=== PATIENT | female | born 1990 | race Caucasian/White ===

== ENCOUNTER 2021-09-22 20:14 | Emergency (ER) | payer OTHER ==
[2021-09-22 20:20] VITALS: BP 126/77
[2021-09-22] MEDS ORDERED: predniSONE 20 MG TABLET PO STA (20:34)
[2021-09-22] MEDS ORDERED: HYDROcod/ACET 5/325 Prepack 4 PO STA (20:34)
--- NOTE | 2021-09-22 20:36 | ED Physician Documentation ---
History of Present Illness - Stated complaint Stated Complaint: NECK/BACK PX - Chief complaint Chief Complaint: Ext Problem - History obtained from History obtained from: Patient - Additonal information Additional information: About 2 days ago she thinks she slept on her neck wrong. Since then she has had moderate pain focused at the bottom of the neck radiating to the left to the shoulder and the arm is associated with weakness in the arm. She is never had this before. No fevers or chills. Symptoms worsen with bending and twisting. Review of Systems Ten Systems: 10 systems reviewed and negative Constitutional: denies: Fever, Chills Ears: reports: Reviewed and negative Nose: reports: Reviewed and negative Cardiac: reports: Reviewed and negative PD PAST MEDICAL HISTORY - Present Medications Home Medications: Ambulatory Orders Medication Instructions Recorded Confirmed HYDROcod/ACETAM 5/325 [[place] 5/325] 1 - 2 tab PO Q6H PRN #15 tablet 09/22/21 predniSONE [Deltasone] 20 mg PO [id number] #21 tab 09/22/21 - Allergies Allergies/Adverse Reactions: Allergies Allergy/AdvReac Type Severity Reaction Status Date / Time No Known Drug Allergies Allergy Verified 09/22/21 20:20 PD ED PE NORMAL - Vitals Vital signs reviewed: Yes - General General: Alert and oriented X 3, No acute distress - HEENT HEENT: PERRL, EOMI - Neck Neck: Other (Mild tenderness at the base of the neck, no meningismus and relatively painless range of motion of the neck. 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 Mildly diminished sensation along the medial side of the left arm.) - Neuro Neuro: Alert and oriented X 3, Normal speech Results - Vitals Vitals: Vital Signs - 24 hr 09/22/21 20:15 Temperature 36.2 C L Heart Rate 73 Respiratory 18 Rate Blood Pressure 126/77 O2 Saturation 100 Oxygen O2 Source Room air PD MEDICAL DECISION MAKING - ED course ED course: 31-year-old woman with signs and symptoms pretty classic for cervical radiculopathy. She is administered steroids and some pain control pending follow-up with PCP for presumed referral to physical therapy. Departure - Departure Disposition: 01 Home, Self Care Clinical Impression: Cervical radiculopathy Condition: Good Record reviewed to determine appropriate education?: Yes Instructions: ED Cervical Radiculopathy Prescriptions: predniSONE [Deltasone] 20 mg PO [id number] #21 tab HYDROcod/ACETAM 5/325 [[place] 5/325] 1 - 2 tab PO Q6H PRN #15 tablet PRN Reason: Pain Comments: I sent your prescriptions electronically to [facility] in [place]. You were seen today for symptoms and an exam that are very consistent with a cervical radiculopathy, AKA "a pinched nerve in your neck." [place]. I anticipate they will refer you to physical therapy. I am prescribing a short course of narcotic pain medication for you. These are potentially dangerous and addictive medications that should be used carefully. These medications may constipate you. Take an eljw-nag-kcqvopu stool softener (docusate) twice daily with plenty of water while taking these medications. If you go 24 hours without a bowel movement, take atjl-deo-mhnqllr miralax, per package instructions. Do not drink or drive while taking these medications. If you received narcotic or sedating medications while in the emergency department, do not drive for 24 hours. Store this medication in a safe, secure place and out of reach of children. It is a violation of federal law to give or sell this medication to another person or to use in a manner other than prescribed. The ED will not refill narcotic prescriptions, including prescriptions lost or stolen. To dispose of unwanted medications: 1. [facility] at [address] in [place] has a medication drop box. They accept prescription medications (in pill form) Friday through Friday 9:00 a.m. to 5:00 p.m. 2. [facility] [employer] accepts prescription medications (in pill form only) for disposal year round. Call for more information. 3. Contact the [facility] for the next [facility] sponsored prescription drug collection event. , [phone], or [phone]; Note that many narcotic pain relievers also contain Tylenol/acetaminophen. Please ensure that your total dose of acetaminophen from all sources does not exceed 3 g (3000 mg) per day.
== END 2021-09-22 20:56 | disposition home or self-care (01) ==
LOC: ED 20:14
DX: M54.12 Radiculopathy, cervical region (principal)
CPT/HCPCS: 99282; J7512